=== PATIENT | male | born 1955 ===

== ENCOUNTER → 2024-05-31 | Outpatient (CLI) | payer OTHER ==
[2024-06-01 08:07] LABS: Stool Occult Bld Immuno 1 Negative (NEGATIVE)
== END | disposition home or self-care (01) ==
LOC: LAB SHORT 10:20 → LAB 10:20 → LAB FUT 05-30 08:00
PROVIDERS: Nurse Practitioner Family
DX: Z12.5 Encounter for screening for malignant neoplasm of prostate (principal); Z12.11 Encounter for screening for malignant neoplasm of colon; M19.90 Unspecified osteoarthritis, unspecified site; Z86.718 Personal history of other venous thrombosis and embolism
CPT/HCPCS: G0328